=== PATIENT | female | born 1965 | race Caucasian/White ===

== ENCOUNTER → 2018-10-18 | Outpatient (CLI) | payer OTHER ==
--- NOTE | 2018-10-18 10:06 | RAD ---
EXAM: Lumbar spine, 2 views. HISTORY: Pain. COMPARISON: None. FINDINGS: 2 views of the lumbar spine are obtained. There is mild lumbar dextrocurvature centered at L2. There is no significant listhesis. The vertebral bodies are normal in height and the disc spaces are preserved. There is facet arthropathy at the lumbosacral junction. There is suspected cholelithiasis. IMPRESSION: 1. Mild degenerative change at the lumbosacral junction. 2. Suspected cholelithiasis. Electronically signed by: Estephanie Pickering MD (10/18/2018 10:02 AM) [place] [id number]
== END | disposition home or self-care (01) ==
LOC: RAD 09:37
PROVIDERS: ATTEND Surgery
DX: M47.897 Other spondylosis, lumbosacral region (principal); M12.88 Other specific arthropathies, not elsewhere classified, other specified site; M43.8X6 Other specified deforming dorsopathies, lumbar region
CPT/HCPCS: 72100